=== PATIENT | male | born 1995 | race Caucasian/White ===

== ENCOUNTER 2017-03-12 20:44 | Emergency (ER) | payer SELFPAY ==
[~2017-03-12] VITALS: Ht 188 cm; Wt 114.5 kg
[2017-03-12 21:52] VITALS: BP 135/88
== END 2017-03-12 21:55 | disposition home or self-care (01) ==
LOC: M ED 20:44
DX: F43.0 Acute stress reaction (principal); F12.10 Cannabis abuse, uncomplicated; F17.200 Nicotine dependence, unspecified, uncomplicated